=== PATIENT | male | born 1990 | race African-American/Black ===

== ENCOUNTER 2023-07-05 19:02 | Emergency (ER) | payer BC ==
[2023-07-05 19:16] VITALS: BP 138/91; PULSE 100; RESP 16; TEMP 98; BMI 33.9
[2023-07-05] MEDS ORDERED: KETOROLAC TROMETHAMINE 60 MG/2 ML VIAL IM ONE (19:35)
[2023-07-05] MEDS ORDERED: KETOROLAC TROMETHAMINE 60 MG/2 ML VIAL ONE (19:39)
== END 2023-07-05 20:49 | disposition home or self-care (01) ==
LOC: FER 19:02
PROC: 3E0233Z Introduction of Anti-inflammatory into Muscle, Percutaneous Approach (ICD-10-PCS; principal; 2023-07-05)
DX: M54.41 Lumbago with sciatica, right side (principal); M79.10 Myalgia, unspecified site
CPT/HCPCS: 99284-25

== ENCOUNTER 2023-09-19 14:42 | Emergency (ER) | payer BC ==
[2023-09-19 15:11] VITALS: BP 137/105; PULSE 101; RESP 18; TEMP 98; BMI 32.3
[2023-09-19] MEDS ORDERED: LORATADINE 10 MG TABLET PO ONE (17:06)
[2023-09-19] MEDS ORDERED: LORATADINE 10 MG TABLET ONE (17:13)
== END 2023-09-19 17:24 | disposition home or self-care (01) ==
LOC: JERFT 14:42
DX: H57.89 Other specified disorders of eye and adnexa (principal)
CPT/HCPCS: 99283-25